=== PATIENT | female | born 1955 | race Caucasian/White ===

== ENCOUNTER 2021-06-12 10:38 | Emergency (ER) | payer OTHER ==
[2021-06-12 10:56] LABS: HEMOGLOBIN 11.8 gm/dl (12.3-15.3); RED BLOOD COUNT 3.8 M/UL (4.00-5.10); WHITE BLOOD COUNT 5.7 K/UL (4.5-11.0)
[2021-06-12 11:31] LABS: BUN/CREATININE RATIO 12 (0-10)
[2021-06-12] MEDS ORDERED: ZOFRAN ODT 4 MG4 MG SL (15:25)
[2021-06-12] MEDS ORDERED: CARAFATE1 GM PO (15:25)
== END 2021-06-12 15:25 | disposition home or self-care (01) ==
LOC: ER1 10:38
PROVIDERS: Student in an Organized Health Care Education/Training Program
DX: U07.1 COVID-19 (principal); Z90.49 Acquired absence of other specified parts of digestive tract
CPT/HCPCS: 80053; 81001; 82550; 82553; 83690; 84484; 85025; 96374; 96375; 99284; J2270; J2405; Q9967; U0002

== ENCOUNTER 2021-12-10 14:42 | Emergency (ER) | payer OTHER ==
[~2021-12-10 14:42] MED LIST: CARAFATE1 GM PO; ZOFRAN ODT 4 MG4 MG SL
== END 2021-12-10 16:53 | disposition left against medical advice (07) ==
LOC: ER1 14:42
DX: Z53.21 Procedure and treatment not carried out due to patient leaving prior to being seen by health care provider (principal)